=== PATIENT | female | born 1965 | race Caucasian/White ===

== ENCOUNTER → 2016-06-15 | Outpatient (CLI) | payer OTHER ==
--- NOTE | ~2016-06-15 | US136 ---
[facility] A Service of [facility] RADIOLOGY TEXT RESULTS PATIENT: TUSHAR CANCHOLA LOCATION: CNIV : 67 UNIT #: [id number] AGE: [address]: Eugene Byrd MD SEX: F ORDER DR: [id number] [facility] [address] [place], [place] [address] [id number] O MR#: [id number] Acc #: [id number] NAME: TUSHAR CANCHOLA : 1965 SEX: F STUDY DATE/TIME: 06/15/2016 14:39 UNIT: CNIV ROOM: STUDY DESCRIPTION: U/L [facility] [employer] Attending Physician: Shaista Byrd M.D. Referring Physician: Shaista Byrd M.D. Ordering Physician: Shaista Byrd M.D. Primary Care Physician: Christina Baca M.D. MEDICAL IMAGING REPORT This report is preliminary unless electronic signature is present DATE OF EXAM 06/15/2016 REASON FOR EXAM Peripheral arterial disease. EXAM Bilateral lower extremity BURTON. FINDINGS The right brachial pressure is 128, left is 126. Right dorsalis pedis pressure is 138, posterior tibial is 142, for an BURTON of 1.11, and a first toe pressure of 52 mmHg. Left dorsalis pedis pressure is 144, and post-tibial is 150 for an BURTON of 1.17 and a first toe pressure of 64 mmHg. PVR waveforms at the ankle level appear to be symmetric and intact bilateral. First toe digital waveforms are slightly diminished but symmetric bilateral. Arterial waveforms of the dorsalis pedis and posterior tibial arteries demonstrate biphasic waveforms bilateral. IMPRESSION No significant arterial insufficiency in either the right or the left lower extremity with that of good perfusion of the first toes. Dictated by... Janessa Tam M.D. THIS IS AN ELECTRONICALLY VERIFIED REPORT Janessa Tam M.D. at 06/16/2016 10:42 PM FPN/jt [facility] A Service of [facility] RADIOLOGY TEXT RESULTS PATIENT: TUSHAR CANCHOLA LOCATION: CNIV : 67 UNIT #: [id number] AGE: [address]: Eugene Byrd MD SEX: F ORDER DR: TD: 06/15/2016 22:08 JOB #: [id number] MEDICAL IMAGING REPORT COPY
== END | disposition home or self-care (01) ==
LOC: CNIV 14:12
DX: I73.9 Peripheral vascular disease, unspecified (principal)
CPT/HCPCS: 93922